=== PATIENT | male | born 1965 | race Caucasian/White ===

== ENCOUNTER → 2018-12-16 | Day surgery (SDC) | payer OTHER ==
[~2018-12-16] MED LIST: ACET325T9 PO; AMLO10TA8 PO; ATOR40TA59 PO; BACL10TA PO; BUSP5TAB PO; CHLO15MO2 PO; DIVA500T2 PO; DOCU-109 PO; FURO-69 PO; INSU100I17 SQ; LISI10TA2 PO; METF500T16 PO; OXYB5TAB7 PO; PROPOFOL 40 ML IV ONE; RIVA20TA2 PO; SIMV20TA3 PO; VENL75CA PO; WARF3TAB50 PO; WARF6TAB47 PO
[2018-12-16 13:05] VITALS: BP 128/68
--- NOTE | 2018-12-17 17:09 | PATHOLOGY ---
[facility] Accession Number: [id number] . 01 Material submitted: . PART A: RANDOM GASTRIC BIOPSY PART B: BIOPSY AT 32CM PART C: BIOPSY AT 30CM PART D: BIOPSY AT 28CM PART E: BIOPSY AT 26CM . 01 Clinical history: . Abnormal CT . 02 Diagnosis: A. Random gastric biopsies: - Congestion and slight chronic inflammation. . B. Esophageal biopsy, 32 cm: - Segments of gastric and columnar lined mucosa with focal contiguous squamous esophageal mucosa showing chronic inflammation and intestinal metaplasia with goblet cells, consistent with Torres's change. . C. Esophageal biopsy, 30 cm: - Segment of columnar lined mucosa showing chronic inflammation and focal intestinal metaplasia with goblet cells, consistent with Torres's change. . D. Esophageal biopsy, 28 cm: - Segment of columnar lined mucosa and focally contiguous squamous esophageal mucosa showing chronic inflammation and intestinal metaplasia with goblet cells, consistent with Torres's change. . E. Esophageal biopsy, 26 cm: - Segment of squamous esophageal mucosa showing no diagnostic abnormalities. (JPM:fercho; 12/17/2018) QMS/12/17/2018 . 02 Comment: Sections of the random gastric biopsy reveal segments of gastric body mucosa and a segment of gastric antral mucosa showing congestion and slight chronic inflammation. A properly controlled immunoperoxidase stain for Helicobacter is negative for Helicobacter organisms. . Sections of the esophageal biopsies at 32 cm, 30 cm, and 28 cm reveal segments of columnar lined mucosa showing focally active moderate chronic inflammation and intestinal metaplasia with goblet cells consistent with Torres's change. There is no dysplasia or evidence of malignancy. . Sections of the esophageal biopsy at 26 cm reveal a segment of squamous esophageal mucosa showing no diagnostic abnormalities. (JPM:fercho; 12/17/2018) . . Special stain performed: Immunoperoxidase stain for Helicobacter on A1. . 02 Electronically signed: . Wilbur Vazquez MD, Pathologist NPI- [id number] . 01 Gross description: . A. Received in formalin labeled "Esvin Rice, random BX, rule out H. pylori," and additionally labeled on the requisition as "gastric," are 5 segments of posadas soft tissue measuring 1.5 x 0.9 x 0.1 cm in aggregate dimensions and ranging from 0.1 to 0.6 cm in maximum dimension. The specimen is submitted entirely in cassette A1. . B. Received in formalin labeled "Dwayne Esvin, BX at 32 cm," are 3 segments of posadas soft tissue measuring 0.9 x 0.8 x 0.2 cm in aggregate dimensions and ranging from 0.1 to 0.3 cm in maximum dimension. The specimen is submitted entirely in cassette B1. . C. Received in formalin labeled "Dwayne Esvin, BX at 30 cm," is a single segment of posadas soft tissue measuring 0.3 cm in maximum dimension. The specimen is entirely submitted in cassette C1. . D. Received in formalin labeled "Esvin Rice, BX at 28 cm," is a single segment of posadas soft tissue measuring 0.5 cm in maximum dimension. The specimen is entirely submitted in cassette D1. . E. Received in formalin labeled "Dwayne Esvin, BX at 26 cm," is a single segment of posadas soft tissue measuring 0.3 cm in maximum dimension. The specimen is entirely submitted in cassette E1. (TSD; 12/16/2018) TOB/TOB . 02 Pathologist provided ICD-10: K29.50, K31.89, K20.9 . 02 CPT . 159625, 028081, 122397, 038984, 299083, [id number] Specimen Comment: A courtesy copy of this report has been sent to Specimen Comment: [phone], . Specimen Comment: Report sent to / DR BERGMAN Specimen Comment: A duplicate report has been generated due to demographic updates. Performed at: 01 [facility] [address], [place] [id number] MD Paras Bruce MD Phone: [phone] Performed at: 02 [facility] [address], [place] [id number] MD Wilbur Vazquez MD Phone: [phone]
== END | disposition home or self-care (01) ==
LOC: SURG 10:59
PROVIDERS: ATTEND Internal Medicine
DX: K22.70 Barrett's esophagus without dysplasia (principal); K31.89 Other diseases of stomach and duodenum; K44.9 Diaphragmatic hernia without obstruction or gangrene; E78.5 Hyperlipidemia, unspecified; I10 Essential (primary) hypertension; E11.9 Type 2 diabetes mellitus without complications; G40.909 Epilepsy, unspecified, not intractable, without status epilepticus; Z86.73 Personal history of transient ischemic attack (TIA), and cerebral infarction without residual deficits; F32.9 Major depressive disorder, single episode, unspecified; Z82.49 Family history of ischemic heart disease and other diseases of the circulatory system; Z79.84 Long term (current) use of oral hypoglycemic drugs; Z79.899 Other long term (current) drug therapy
CPT/HCPCS: 43239; 88305; 88342; J2704